=== PATIENT | female | born 1985 | race Asian ===

== ENCOUNTER 2017-03-25 12:32 | Emergency (ER) | payer OTHER ==
[~2017-03-25] VITALS: Ht 157.5 cm; Wt 59.9 kg
[2017-03-25 12:33] VITALS: TEMP 97.8
[2017-03-25 13:24] LABS: PLATELET COUNT 200 K/uL (152-353)
[2017-03-25 13:35] LABS: POTASSIUM 3.7 mmol/L (3.6-5.2); SODIUM 135 mmol/L (136-145)
[2017-03-25 15:35] VITALS: BP 110/62
== END 2017-03-25 15:35 | disposition short-term general hospital (02) ==
LOC: ED 12:32
DX: R10.84 Generalized abdominal pain (principal); Z33.1 Pregnant state, incidental
CPT/HCPCS: 80053; 81000; 85027; 99284; J2550

== ENCOUNTER 2017-03-25 12:52 | Outpatient (CLI) | payer OTHER | END 2017-03-25 13:22 | disposition short-term general hospital (02) | LOC: AMB 12:52 | DX: R10.84 Generalized abdominal pain (principal); Z33.1 Pregnant state, incidental | CPT/HCPCS: A0425; A0427 ==

== ENCOUNTER 2018-07-18 17:01 | Emergency (ER) | payer OTHER ==
[~2018-07-18] VITALS: Ht 160 cm; Wt 63.5 kg
[2018-07-18 18:22] VITALS: BP 123/57; TEMP 99.3
== END 2018-07-18 18:22 | disposition home or self-care (01) ==
LOC: ED 17:01
DX: J11.1 Influenza due to unidentified influenza virus with other respiratory manifestations (principal); Z33.1 Pregnant state, incidental
CPT/HCPCS: 87651; 99283

== ENCOUNTER 2018-08-24 19:42 | Emergency (ER) | payer OTHER ==
[~2018-08-24] VITALS: Ht 157.5 cm; Wt 61.2 kg
[2018-08-24 21:09] VITALS: BP 112/62; TEMP 97.7
== END 2018-08-24 21:11 | disposition home or self-care (01) ==
LOC: ED 19:42
DX: S02.5XXA Fracture of tooth (traumatic), initial encounter for closed fracture (principal); K02.9 Dental caries, unspecified; K08.89 Other specified disorders of teeth and supporting structures; Z33.1 Pregnant state, incidental
CPT/HCPCS: 99282

== ENCOUNTER 2020-02-16 22:58 | Emergency (ER) | payer OTHER ==
[~2020-02-16] VITALS: Ht 157.5 cm; Wt 64.9 kg
[2020-02-16 23:33] VITALS: BP 107/56; TEMP 98.8
== END 2020-02-16 23:34 | disposition home or self-care (01) ==
LOC: ED 22:58
DX: M65.4 Radial styloid tenosynovitis [de Quervain] (principal)
CPT/HCPCS: 99281